=== PATIENT | female | born 1985 | race Caucasian/White ===

== ENCOUNTER 2022-03-01 01:13 | Day surgery (SDC) | payer OTHER, SELFPAY ==
[2022-02-27 10:07] VITALS: BMI 31.4
--- NOTE | 2022-02-27 11:35 | PC.NURSE ---
Report to the Outpatient Waiting Room, entrance under the green pavilion located off [facility], at time _0845 on date _03/01/22_. OR Time: _1045 . - You and your visitor will be asked a series of questions to screen for COVID 19 for your protection. - Only one visitor is allowed at this time. - The patient visitor is requested to leave or wait in car when not with patient. - A mask is required within the hospital. Patients may have clear liquids (water, carbonated beverages, clear teas, apple juice) until 3 hours prior to surgery with a maximum of 20 ounces. - No food from midnight until time of surgery - Take the following medications with a SIP of water the morning of surgery: ___BIRTH CONTROL PILL Medications to discontinue per physician N/A Date to take last dose____N/A Please no make-up, nail spanish, hairspray, perfume, deodorant, or body powder the day of surgery. No jewelry (including any body piercings) or valuables the day of surgery, leave them at home. Please take a shower or bath the night before, or the morning of, surgery with an antibacterial soap. Wear comfortable, loose fitting clothing. - Jewelry must be removed prior to entering the operating room. Rings and piercings that are not removed may be cut off. - The hospital will not accept responsibility for valuables. - Please leave all valuables, including medications, at home the day of surgery. If you are going home after surgery, a licensed cement mixer driver must drive you home. - NO public transportation without another adult. - We recommend that an adult stay with you for 24 hours following discharge. - We also recommend that you do not drive, make important decision, drink alcoholic beverages, or take any drugs that were not prescribed by your health care provider for at least 24 hours after your discharge time. Follow any additional instructions given to you from your surgeon. If you or anyone in your household have experienced Covid symptoms in the past week, please notify your surgeon or the nurse liaison at the phone number below for possible testing. Telephone instructions given to _CLEMENCIA and asked if any additional questions and then verbalized understanding. Patient advised to call surgeon office or pre surgery nurse liaison [phone] if any additional questions.
--- NOTE | 2022-02-28 10:09 | P.HP_ITS ---
H&P: HPI History of Present Illness Date/Time: 02/28/22 10:09 36-year-old 5 para 3023 female presents for evaluation and treatment of heavy vaginal bleeding. This began a few months ago was seen emergency room with hemoglobin of 9 and subsequent ultrasound which revealed no significant abnormalities. She had an episode similar to this years ago was transfused placed on control pills and did well. She does not desire control pills as she has had a tubal ligation in the meantime. Chief Complaint: Menometrorrhagia Review of Systems Review of Systems: All systems reviewed & are unremarkable except as noted in HPI and below PMFSH Past Medical History Medical History Anemia Surgical History Surgical History History of gynecological procedure tubal ligation Family History Family History Mother Hypertension Social History Social History Smoking packs per day: 1 Smoking cigarettes per day: 20.0 Years smoked: 17 Smoking pack-years: 17.00 Smoking status: Current every day smoker Tobacco type: cigarettes Alcohol intake: never Substance use: current Substance use type: marijuana Other substance usage details: DAILY Living arrangements: with family Additional living arrangements comments: 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 Gender identity (if verbalized by the patient): Female Sexual Orientation (if Verbalized by the Patient): Straight or Heterosexual Spiritual care concerns: No Meds Home Medications and Allergies Home Medications Medication Instructions Recorded Confirmed Type acetaminophen 500 mg tablet 500 mg PO Q6H 12/14/21 02/27/22 History (Tylenol Extra Strength) ferrous sulfate 325 mg (65 mg 325 mg PO DAILY #30 tabs 12/28/21 02/27/22 Rx iron) tablet (FeroSul) drospirenone 3 mg-ethinyl 1 tablet PO DAILY #84 tabs 01/22/22 02/27/22 Rx estradiol 0.03 mg tablet (Dasia) Allergies Allergy/AdvReac Type Severity Reaction Status Date / Time No Known Allergies Allergy Unverified 12/14/21 15:28 Exam Const: General: cooperative, healthy appearing and comfortable Resp: Effort & Inspection: normal respiratory effort Auscultation: clear to auscultation bilaterally Cardio: Rate: regular rate Rhythm: regular rhythm GI: Inspection: normal to inspection Auscultation: normal bowel sounds : External Female Exam: normal external appearance Speculum Exam - Vagina : normal appearance of the vagina Speculum Exam - Cervix: normal appearance of the cervix Bimanual exam- vagina & uterus: enlarged ( It is 8-10 weeks) Bimanual Exam- Adnexa, other: normal adnexae Assessment and Plan Assessment and plan (1) Menometrorrhagia: Code(s): N92.1 - Excessive and frequent menstruation with irregular cycle Status: Acute Assessment and Plan: proceed with hysteroscopy with uterine curettings as well as endometrial ablation. (2) Anemia: Code(s): D64.9 - Anemia, unspecified Status: Acute
[2022-03-01 08:59] VITALS: BP 143/82; PULSE 100; RESP 18; TEMP 36.7; O2SAT 100
[2022-03-01] MEDS: LACTATED RINGERS 1,000 ML 30 ML IV CONT (09:20)
[2022-03-01] MEDS: ACETAMINOPHEN 500 MG TABLET 1000 MG PO (09:23)
[2022-03-01] MEDS: FAMOTIDINE 20 MG/2 ML VIAL IV PUSH (09:23)
[2022-03-01] MEDS: ONDANSETRON INJ 4 MG/2 ML VIAL IV PUSH (09:23)
[2022-03-01 09:29] LABS: Hematocrit 34.6 % (37.0-47.0); Hemoglobin 11.4 g/dL (12.0-15.0)
--- NOTE | 2022-03-01 09:32 | WPDANESEPPF ---
Anes - Initial Pre Proc Eval Procedure: Operation Date: 03/01/22 10:45 Proposed Procedures p Hysteroscopy Dilation and Curettage with Francia Endometrial Ablation - Jono Burdick MD Date/Time: 03/01/22 09:32 Surgeon: Jono Burdick MD Pre Op Diagnosis: menometrorrhagia Patient Data Age: 36 Gender: F Height: 1.37 m Weight: 57.1 kg Last Vital Signs Temp 36.7 C 03/01/22 08:59 Pulse 100 03/01/22 08:59 Resp 18 03/01/22 08:59 BP 143/82 H 03/01/22 08:59 Pulse Ox 100 03/01/22 08:59 O2 Del Method Room Air 03/01/22 08:59 Allergies Allergy/AdvReac Type Severity Reaction Status Date / Time No Known Allergies Allergy Unverified 03/01/22 09:29 Home Medications Medication Instructions Recorded Confirmed Type acetaminophen 500 mg tablet 500 mg PO Q6H 12/14/21 03/01/22 History (Tylenol Extra Strength) ferrous sulfate 325 mg (65 mg 325 mg PO DAILY #30 tabs 12/28/21 03/01/22 Rx iron) tablet (FeroSul) drospirenone 3 mg-ethinyl 1 tablet PO DAILY #84 tabs 01/22/22 03/01/22 Rx estradiol 0.03 mg tablet (Dasia) Laboratory Tests 03/01/22 09:14 Hgb 11.4 g/dL L g/dL (12.0-15.0) Hct 34.6 % L % (37.0-47.0) Patient hx anesthesia problems: none Family hx anesthesia problems: none Results Review: All pre-operative results and documents have been reviewed as part of the pre-operative evaluation. [facility] Past Medical History Medical History Anemia Obesity Smoker Surgical History Surgical History History of gynecological procedure tubal ligation Family History Family History Mother Hypertension Social History Social History Smoking packs per day: 1 Smoking cigarettes per day: 20.0 Years smoked: 17 Smoking pack-years: 17.00 Smoking status: Current every day smoker Tobacco type: cigarettes Alcohol intake: never Substance use: current Substance use type: marijuana Other substance usage details: DAILY Living arrangements: with family Additional living arrangements comments: 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 Gender identity (if verbalized by the patient): Female Sexual Orientation (if Verbalized by the Patient): Straight or Heterosexual Spiritual care concerns: No Anes - Eval Final PreProcedure Day of Procedure 03/01/22 09:32 Patient weight: obese Heart: regular rate and rhythm Lungs: clear to auscultation Neurological: alert and oriented Last oral intake: 2 hours (7am 4 oz Eli - vomited all - pt states due to nerves) ASA classification: III Emergent: no Anesthesia type and monitoring: general GIVS and standard monitoring Results Review: All pre-operative results and documents have been reviewed as part of the pre-operative evaluation. Informed Consent: The patient's anesthetic plan and its attendant risks and benefits were discussed with the patient/family/POA. Questions were solicited and answers provided to the satisfaction of the patient/family/POA.
[2022-03-01] MEDS: ceFAZolin 2 GM/D5W 50 ML 2 GM/50 ML BAG IVPB (09:59)
--- NOTE | 2022-03-01 10:29 | W.PM.PROC2 ---
Procedure Note - Detailed Date of Procedure 03/01/22 Pre-op Diagnosis menometrorrhagia Post-op Diagnosis Same Procedure Performed 1. Hysteroscopy uterine curettings 2. Francia endometrial ablation Surgeon Jono Burdick MD Findings Thickened endometrial cavity. No abnormalities otherwise. Description of Procedure Patient prepped and draped in usual manner for this procedure. Cervix dilated to allow the hysteroscope to place the thickened tissue. Curettings were obtained without difficulty. Francia insert was placed cavity assessment performed and instrument activated. In the procedure destruction was noted throughout. Patient sent to recovery room in stable condition. Estimated Blood Loss 25 Drains No Packing No Pathology Yes Complications No immediate complications Condition Stable Disposition PACU [facility] Billing Surgery - Charge Forward: Surgery Billing
[2022-03-01 10:30] VITALS: BP 135/82; PULSE 81; RESP 16; O2SAT 100
[2022-03-01 11:00] VITALS: BP 119/80; PULSE 80; RESP 16; O2SAT 100
[2022-03-01] MEDS: oxyCODONE HCL (*CRX) 5 MG TAB IR PO (11:06)
[2022-03-01 11:25] VITALS: BP 120/56; PULSE 70; RESP 17
[2022-03-01 11:30] VITALS: BP 129/77; PULSE 79; RESP 16
== END 2022-03-01 11:35 | disposition home or self-care (01) ==
PROVIDERS: Anesthesiology; Visit Provider Obstetrics & Gynecology
PROC: 0U5B8ZZ Destruction of Endometrium, Via Natural or Artificial Opening Endoscopic (ICD-10-PCS; CPT 58563; principal; 2022-03-01 10:45)
DX: N92.1 Excessive and frequent menstruation with irregular cycle (principal); D64.9 Anemia, unspecified; E66.9 Obesity, unspecified; Z68.30 Body mass index [BMI] 30.0-30.9, adult; F17.210 Nicotine dependence, cigarettes, uncomplicated; F12.90 Cannabis use, unspecified, uncomplicated
CPT/HCPCS: 58563; 36415; 85014; 85018; 88305; A9270; J0690; J2250; J2405; J2704; J3010; J7030; J7120